=== PATIENT | female | born 1955 | race Caucasian/White ===

== ENCOUNTER 2019-03-20 21:04 | Emergency (ER) | payer OTHER ==
[2019-03-20 21:55] LABS: ABS Eosinophils 0.1 10^3/ul (0-0.6); ABS Lymphocytes 1.6 10^3/ul (1.0-4.8); ABS Monocytes 0.3 10^3/ul (0-0.8); ABS Neutrophils 4.9 10^3/ul (1.5-7.7); Eosinophil % 1.2 %; Hematocrit 41 % (35-47); Hemoglobin 13.9 g/dL (12.0-16.0); Lymphocyte % 23.6 %; Mean Corpuscular HGB Conc 34 g/dL (31-36); Mean Corpuscular Hemoglobin 32 pg (27-31); Mean Corpuscular Volume 94 fL (80-97); Mean Platelet Volume 7.9 fL (7.4-10.4); Nucleated Red Blood Cells % 0.1; Platelet Count 231 10^3/uL (150-450); Red Blood Count 4.29 10^6 /uL (3.70-4.87); Red Cell Distribution Width 13 % (10-15); White Blood Count 6.9 10^3/uL (3.5-10.8)
[2019-03-20 22:12] LABS: ALT 18 U/L (7-52); AST 20 U/L (13-39); Albumin 4.4 g/dL (3.2-5.2); Albumin/Globulin Ratio 1.7 (1-3); Alkaline Phosphatase 105 U/L (34-104); Anion Gap 7 mmol/L (2-11); BUN/Creatinine Ratio 18.8 (8-20); Blood Urea Nitrogen 12 mg/dL (6-24); C Reactive Protein < 1.00 mg/L (<8.01); CO2 Carbon Dioxide 30 mmol/L (22-32); Calcium 9.6 mg/dL (8.6-10.3); Chloride 103 mmol/L (101-111); EGFR African American 114.1 (>60); EGFR Non-African American 94.3 (>60); Globulin 2.6 g/dL (2-4); Glucose 142 mg/dL (70-100); Sodium 140 mmol/L (135-145)
[2019-03-20 23:15] LABS: Urine Appearance Clear; Urine Bilirubin Negative (Negative); Urine Blood Negative (Negative); Urine Color Straw; Urine Glucose Negative (Negative); Urine Ketones Negative (Negative); Urine Nitrite Negative (Negative); Urine Protein Negative (Negative); Urine Specific Gravity 1.005 (1.010-1.030); Urine Urobilinogen Negative (Negative)
[2019-03-21] MEDS ORDERED: Meclizine TAB* 12.5 MG PO ONE (01:01)
[2019-03-21] MEDS ORDERED: NS 0.9% 1000 ML** 1,000 ML IV ONE (01:01)
--- NOTE | 2019-03-21 01:04 | ED ---
Dizziness - HPI Summary HPI Summary: This pt is a 63 Y/O F presenting to [facility] with her family with a CC of dizziness that has been present since Wednesday03/18/19. She states that the dizziness is described as room spinning but has never been severe enough to make her vomit or feel nauseas. She states that she has photophobia. She reports that she cant walk without feeling unbalanced. She states that light and movement aggravates her symptoms. She stated no alleviating factors. She denied any fevers, CP, diaphoresis and headaches. - History Of Current Complaint Chief Complaint: EDDizziness Stated Complaint: DIZZY,LIGHT HEADED PER PT Time Seen by Provider: 03/21/19 00:49 Hx Obtained From: Patient Onset/Duration: Still Present, Gradually - since 03/18/19 Timing: Constant Severity Initially: Mild Severity Currently: Moderate Character: Room Spinning, Lightheaded, Dizzy Aggravating Factor(s): Exertion, Other - photophobia Alleviating Factor(s): Nothing Associated Signs And Symptoms: Positive: Unsteady Gait, Other: - photophobia. Negative: Nausea, Vomiting, Diarrhea, Fever, Chills - Allergies/Home Medications Allergies/Adverse Reactions: Allergies Allergy/AdvReac Type Severity Reaction Status Date / Time No Known Allergies Allergy Verified 03/20/19 21:13 PMH/Surg Hx/FS Hx/Imm Hx Previously Healthy: Yes Respiratory History: Denies: Hx Asthma Musculoskeletal History: Reports: Hx Arthritis Sensory History: Reports: Hx Contacts or Glasses Opthamlomology History: Reports: Hx Contacts or Glasses - Cancer History Hx Chemotherapy: No Hx Radiation Therapy: No - Surgical History Surgical History: Yes Surgery Procedure, Year, and Place: 2 C-sections: 1988, 1993. [place] surgery - Immunization History Immunizations Up to Date: Yes Infectious Disease History: No Infectious Disease History: Denies: Traveled Outside the [place] in Last 30 Days - Family History Known Family History: Positive: Cardiac Disease - [place] maternal grandmother 61 y/o , Hypertension - paternal, Other - Father had stroke at 56 y/o - Social History Occupation: Employed Part-time Lives: With Family Alcohol Use: Weekly Alcohol Amount: 2-3 per week Hx Substance Use: No Substance Use Type: Reports: None Hx Tobacco Use: Yes Smoking Status (MU): Former Smoker Amount Used/How Often: 1 PPD x7 years Length of Time of Smoking/Using Tobacco: 7 years,. Quit in 1986 Have You Smoked in the Last Year: No Review of Systems Positive: Other - Lightheaded. Negative: Fever, Skin Diaphoresis Positive: Photophobia Negative: Chest Pain Neurological: Other - POSITIVE: dizzy Negative: Headache All Other Systems Reviewed And Are Negative: Yes Physical Exam - Summary Physical Exam Summary: VITAL SIGNS: Reviewed. GENERAL: Patient is a well-developed and nourished female who is lying comfortable in the stretcher. Patient is not in any acute respiratory distress. HEAD AND FACE: No signs of trauma. No ecchymosis, hematomas or skull depressions. No sinus tenderness. EYES: PERRLA, EOMI x 2, No injected conjunctiva, no nystagmus. EARS: Hearing grossly intact. Ear canals and tympanic membranes are within normal limits. MOUTH: Oropharynx within normal limits. NECK: Supple, trachea is midline, no adenopathy, no JVD, no carotid bruit, no c- spine tenderness, neck with full ROM CHEST: Symmetric, no tenderness at palpation LUNGS: Clear to auscultation bilaterally. No wheezing or crackles. CVS: Regular rate and rhythm, S1 and S2 present, no murmurs or gallops appreciated. ABDOMEN: Soft, non-tender. No signs of distention. No rebound no guarding, and no masses palpated. Bowel sounds are normal. EXTREMITIES: FROM in all major joints, no edema, no cyanosis or clubbing. NEURO: Alert and oriented x 3. No acute neurological deficits. Speech is normal and follows commands. SKIN: Dry and warm Triage Information Reviewed: Yes Vital Signs On Initial Exam: Initial Vitals Temp Pulse Resp BP Pulse Ox 97.8 F 56 16 155/71 100 03/20/19 21:09 03/20/19 21:09 03/20/19 21:09 03/20/19 21:09 03/20/19 21:09 Vital Signs Reviewed: Yes Diagnostics - Vital Signs Vital Signs Temp Pulse Resp BP Pulse Ox 03/20/19 22:59 99 F 55 16 129/73 98 03/20/19 21:09 97.8 F 56 16 155/71 100 - Laboratory Lab Results: Lab Results 03/20/19 03/20/19 03/20/19 Range/Units 21:48 21:48 23:05 WBC 6.9 (3.5-10.8) 10^3/uL RBC 4.29 (3.70-4.87) 10^6 /uL Hgb 13.9 (12.0-16.0) g/dL Hct 41 (35-47) % MCV 94 (80-97) fL MCH 32 H (27-31) pg MCHC 34 (31-36) g/dL RDW 13 (10-15) % Plt Count 231 (150-450) 10^3/uL MPV 7.9 (7.4-10.4) fL Neut % (Auto) 70.4 % Lymph % (Auto) 23.6 % [place] % (Auto) 4.2 % Eos % (Auto) 1.2 % Baso % (Auto) 0.6 % Absolute Neuts (auto) 4.9 (1.5-7.7) 10^3/ul Absolute Lymphs (auto) 1.6 (1.0-4.8) 10^3/ul Absolute Monos (auto) 0.3 (0-0.8) 10^3/ul Absolute Eos (auto) 0.1 (0-0.6) 10^3/ul Absolute Basos (auto) 0.0 (0-0.2) 10^3/ul Absolute Nucleated RBC 0.0 10^3/ul Nucleated RBC % 0.1 Sodium 140 (135-145) mmol/L Potassium 4.0 (3.5-5.0) mmol/L Chloride 103 (101-111) mmol/L Carbon Dioxide 30 (22-32) mmol/L Anion Gap 7 (2-11) mmol/L BUN 12 (6-24) mg/dL Creatinine 0.64 (0.51-0.95) mg/dL Est GFR ( Amer) 114.1 (>60) Est GFR (Non-Af Amer) 94.3 (>60) BUN/Creatinine Ratio 18.8 (8-20) Glucose 142 H (70-100) mg/dL Calcium 9.6 (8.6-10.3) mg/dL Total Bilirubin 0.60 (0.2-1.0) mg/dL AST 20 (13-39) U/L ALT 18 (7-52) U/L Alkaline Phosphatase 105 H (34-104) U/L C-Reactive Protein < 1.00 (<8.01) mg/L Total Protein 7.0 (6.4-8.9) g/dL Albumin 4.4 (3.2-5.2) g/dL Globulin 2.6 (2-4) g/dL Albumin/Globulin Ratio 1.7 (1-3) Urine Color Straw Urine Appearance Clear Urine pH 7.0 (5-9) Ur Specific [place] 1.005 L (1.010-1.030) Urine Protein Negative (Negative) Urine Ketones Negative (Negative) Urine Blood Negative (Negative) Urine Nitrate Negative (Negative) Urine Bilirubin Negative (Negative) Urine Urobilinogen Negative (Negative) Ur Leukocyte Esterase Negative (Negative) Urine Glucose Negative (Negative) Result Diagrams: 03/20/19 21:48 03/20/19 21:48 Lab Statement: Any lab studies that have been ordered have been reviewed, and results considered in the medical decision making process. - EKG 2112 Cardiac Rate: NL - 52 BPM EKG Rhythm: Sinus Rhythm ST Segment: Normal Ectopy: None Summary of EKG Findings: sinus rhythm at 52 BPM with a Normal axis. Normal interval. No ischemic changes. [place] Dr[place] 211203/20/19. Re-Evaluation - Re-Evaluation First Eval Re-Evaluation Time: 02:28 Change: Improved Comment: Pt walked around the ED without any issues. She will be discharged home with a Dx of vertigo. Dizzy Course/Dx - Course Course Of Treatment: This pt is a 63 Y/O F presenting to [facility] with her family with a CC of dizziness that has been present since Wednesday03/18/19. She states that the dizziness is described as room spinning but has never been severe enough to make her vomit or feel nauseas. Her PE found no abnormal findings. Her EKG shows that she has a sinus rhythm at 52 BPM with a Normal axis. Normal interval. No ischemic changes. She had no abnormal lab values. She will be discharged home with a Dx of vertigo and given a prescription. She was walked prior to her leaving and had no issues. - Diagnoses Provider Diagnoses: Vertigo Discharge - Sign-Out/Discharge Documenting (check all that apply): Patient Departure - discharge Patient Received Moderate/Deep Sedation with Procedure: No - Discharge Plan Condition: Stable Disposition: HOME Patient Education Materials: Vertigo (ED) Referrals: Savannah Pratt MD [Primary Care Provider] - 2 Days Additional Instructions: Please return to the emergency department for any new or worsening symptoms. Follow up with your primary care provider in 2-3 days. - Attestation Statements Document Initiated by Scribe: Yes Documenting Scribe: Charli Trevizo Provider For Whom Scribe is Documenting (Include Credential): Wade Garcia MD Scribe Attestation: ICharli, scribed for Wade Garcia MD on 03/21/19 at 0228. Status of Scribe Document: Ready
[2019-03-21 02:56] VITALS: BP 117/62
== END 2019-03-21 02:56 | disposition home or self-care (01) ==
LOC: ED 21:04
DX: R42 Dizziness and giddiness (principal); Z87.891 Personal history of nicotine dependence
CPT/HCPCS: 36415; 80053; 81003; 85025; 86140; 93005; 96360; 96361; 99283; A9270-GY